=== PATIENT | female | born 1940 | race Hispanic/Latino ===

== ENCOUNTER 2017-05-05 08:49 | Day surgery (SDC) | payer MEDICARE, BC ==
[2017-04-22 11:05] VITALS: BMI 41.7
[2017-05-05] MEDS ORDERED: Lactated Ringer's 1,000 ML IV ONE (10:14)
[2017-05-05] MEDS ORDERED: Propofol 10 mg/ml Inj (20 ML) ONE (10:16)
[2017-05-05] MEDS ORDERED: Midazolam 2 MG/2 ML VIAL ONE (10:16)
[2017-05-05 12:25] VITALS: RESP 16
[2017-05-05 13:13] VITALS: BP 117/77; PULSE 90; TEMP 97.1; O2SAT 96
--- NOTE | 2017-05-05 17:45 | OP ---
PROCEDURE DATE: 05/05/2017 PREOPERATIVE DIAGNOSIS: Gross hematuria. POSTOPERATIVE DIAGNOSES: Hemorrhagic cystitis and urethral stenosis. PROCEDURE: Urethral dilatation, cystoscopy with bladder biopsies and fulguration. SURGEON: Pradeep Bautista MD. DESCRIPTION OF PROCEDURE: The patient was premedicated with Levaquin, which was started yesterday at home and took a tablet this morning before going to the hospital because of the appropriate bacteriuria that was found in a recent urine culture. She was brought to the operating room placed under sedation anesthesia in lithotomy position, prepped and draped in the usual fashion. She had a very tight urethral stenosis and because she appeared to be uncomfortable, she was converted to LMA anesthesia. We were now able to gently dilate the urethra to 26-Canadian using curved metal sounds. Introduction of a 22-Canadian cystoscope revealed diffuse hemorrhagic cystitis with some oozing but no significant or active bleeding noted. Urine was sent for urinalysis, culture and sensitivity and cytology. We now decided to perform biopsies of two areas, one in the posterior wall and one in the left lateral wall for diagnostic purposes to rule out transitional cell carcinoma or carcinoma in situ. This was done by using a cold punch biopsy forceps, sending two separate specimens and then the bases were cauterized using a Bugbee. I spend about 5 minutes just observing the areas after cauterization to be sure there was no active bleeding and there was none and there was certainly no perforations noted. Bladder inflow came out clear at this point. The bladder was emptied and the scope removed. The patient tolerated procedure well. Pradeep Bautista MD
== END 2017-05-05 13:17 | disposition home or self-care (01) ==
LOC: C.SDS 08:49
PROVIDERS: ATTEND Urology
DX: N30.91 Cystitis, unspecified with hematuria (principal); N35.9 Urethral stricture, unspecified; I10 Essential (primary) hypertension; Z79.899 Other long term (current) drug therapy
CPT/HCPCS: 52204; 87086; 88305; J7120